=== PATIENT | female | born 1985 | race Caucasian/White ===

== ENCOUNTER 2016-10-27 16:54 | Emergency (ER) | payer MEDICAID, OTHER ==
[~2016-10-27] VITALS: Ht 152.4 cm; Wt 93.0 kg
[2016-10-27 16:58] VITALS: BP 106/70
[2016-10-27 17:30] LABS: HEMATOCRIT 42.2 % (34.6-47.8); HEMOGLOBIN 14.4 g/dL (11.7-16.4); WHITE BLOOD COUNT 9.3 x10^3/uL (3.4-10)
[2016-10-27] MEDS ORDERED: FAMOTIDINE 20 MG/2 ML IVP ONE (17:30)
[2016-10-27] MEDS ORDERED: SODIUM CHLORIDE FLUSH 10ML SYR IVF ONE (17:30)
[2016-10-27] MEDS ORDERED: ONDANSETRON 2MG/ML, 2ML IVPush ONE (17:30)
[2016-10-27 17:43] LABS: ASPARTATE AMINO TRANSFERASE 8 U/L (15-37); BLOOD UREA NITROGEN 12 mg/dL (7-18)
[2016-10-27] MEDS ORDERED: METF500T4 PO (18:23)
[2016-10-27] MEDS ORDERED: TRAZ50TA18 PO (18:23)
[2016-10-27] MEDS ORDERED: ESOM40CA PO (18:23)
[2016-10-27] MEDS ORDERED: HYDR50TA13 PO (18:23)
[2016-10-27] MEDS ORDERED: CLON1TAB PO (18:23)
[2016-10-27] MEDS ORDERED: RISP4TAB34 PO (18:23)
[2016-10-27] MEDS ORDERED: FAMOTIDINE 20 MG/2 ML ONE (18:29)
[2016-10-27] MEDS ORDERED: ONDANSETRON 2MG/ML, 2ML ONE (18:29)
[2016-10-27 18:50] LABS: PATH.CAST-FLAG NOT PRESENT; SPERM-FLAG NOT PRESENT; SRC-FLAG NOT PRESENT; XTAL-FLAG NOT PRESENT; YLC-FLAG NOT PRESENT
[2016-10-27] MEDS ORDERED: SODIUM CHLORIDE 0.9% 1,000ML IVBOLUS ONE (19:00)
[2016-10-27] MEDS ORDERED: ACETAMINOPHEN 325 MG TABLET PO ONE (19:30)
[2016-10-27] MEDS ORDERED: ACETAMINOPHEN 325 MG TABLET ONE (19:39)
== END 2016-10-27 19:53 | disposition home or self-care (01) ==
LOC: ED 19:14
DX: K59.00 Constipation, unspecified (principal); E11.9 Type 2 diabetes mellitus without complications; Z90.49 Acquired absence of other specified parts of digestive tract
CPT/HCPCS: 36415; 71010; 74000; 80053; 81001; 83690; 84703; 85025; 85610; 87086; 96361; 96374; 96375; 99285; J2405; J7030; S0028